=== PATIENT | female | born 1990 | race Caucasian/White ===

== ENCOUNTER 2018-01-09 23:03 | Emergency (ER) | payer BC, OTHER ==
--- NOTE | 2018-01-09 23:25 | ER Document Report ---
ED Medical Screen (RME) - General TRAVEL OUTSIDE OF THE [place] IN LAST 30 DAYS: No <BRANDT GARCIA - Last Filed: 01/09/18 23:23> <RAMONA HENDERSON - Last Filed: 01/10/18 01:38> <YARA GUARDADO - Last Filed: 01/10/18 09:59> - General Chief Complaint: Suicidal Ideation Stated Complaint: SUICIDIAL THOUGHTS Time Seen by Provider: 01/09/18 23:23 Notes: 27-year-old female with history of anxiety, depression, panic attacks that comes to the emergency department for chief complaint of feeling overwhelmed, voicing desire to kill herself, and continuous crying. Patient refuses to answer any questions, just continues to cry. states she takes Klonopin for anxiety attacks but was refusing to take any medications tonight. Has been compliant with regular medications reportedly. History of self-harm, no history of suicide attempt, no homicidal ideations. (BRANDT GARCIA) - Related Data Allergies/Adverse Reactions: No Known Drug Allergies Allergy (Verified 01/09/18 23:04) Physical Exam - Psychological Associated symptoms: Tearful - Continuous crying, will not answer questions, will make eye contact however <BRANDT GARCIA - Last Filed: 01/09/18 23:23> - Vital signs Vitals: Temp Pulse Resp BP Pulse Ox 98.5 F 89 20 148/96 H 98 01/09/18 23:07 01/09/18 23:07 01/09/18 23:07 01/09/18 23:07 01/09/18 23:07 Course - Laboratory Result Diagrams: 01/09/18 23:50 01/09/18 23:50 <RAMONA HENDERSON - Last Filed: 01/10/18 01:38> - Laboratory Result Diagrams: 01/09/18 23:50 01/09/18 23:50 <YARA GUARDADO - Last Filed: 01/10/18 09:59> - Re-evaluation Re-evalutation: 01/10/18 01:38 Patient medically cleared labs reviewed awaiting psychiatry consult in the morning (RAMONA HENDERSON) - Vital Signs Vital signs: Temp Pulse Resp BP Pulse Ox 98.5 F 89 20 148/96 H 98 01/09/18 23:07 01/09/18 23:07 10/04/18 23:07 01/09/18 23:07 01/09/18 23:07 - Laboratory Laboratory results interpreted by me: 01/09/18 23:50 Sodium 136.7 L Carbon Dioxide 20 L BUN 6 L Salicylates < 1.0 L Acetaminophen < 10 L Doctor's Discharge <BRANDT GARCIA - Last Filed: 01/09/18 23:23> <SANTIAGORAMONA H - Last Filed: 01/10/18 01:38> <YARA GUARDADO E - Last Filed: 01/10/18 09:59> - Discharge Clinical Impression: Anxiety Depression Qualifiers: Depression Type: unspecified Qualified Code(s): F32.9 - Major depressive disorder, single episode, unspecified Condition: Stable Disposition: HOME, SELF-CARE Additional Instructions: You have been evaluated by both medical and behavioral health teams and if deemed appropriate for discharge. Is recommended he follow-up with your outpatient mental health provider, [facility] services, in 3- 5 days for your continued outpatient mental health services. It may be beneficial to speak to your medication management provider about the possibility of a mood stabilizer versus an antidepressant such as Zyprexa. DEPRESSION: Your evaluation reveals that you have mental depression. While symptoms may be vague, they often include disturbance of sleep, fatigue, loss of appetite , and general loss of interest in life. While depression may be a side effect of drugs, or a reaction to a major change in your life, many cases have no known cause. If depression is acute, and related to a major loss in your life, you can expect it to clear completely with time. If you have been depressed a long time , are prone to repeated bouts of depression or low mood, or have been thinking of suicide, get help. Depression can be treated with anti-depressant medication and counselling. Long-term depression will often take a few weeks to clear, even with appropriate medication. Follow-up care is important. SUICIDAL IDEATION: Suicidal ideation is a common medical term for thoughts about suicide, which may be as detailed as a formulated plan, without the suicidal act itself. Although most people who undergo suicidal ideation do not commit suicide, some go on to make suicide attempts. The range of suicidal ideation varies greatly from fleeting to detailed planning, role playing, and unsuccessful attempts. While thoughts about suicide are common, most people do not carry out serious actions to commit suicide. Based upon your evaluation and discussion with you, we do not believe you are currently at risk to act upon your thoughts of suicide. You have agreed to return to the Emergency Department, at any time , if you feel inclined to act upon your suicidal thoughts. FOLLOW-UP CARE: If you experience worsening or a significant change in your symptoms, notify the physician immediately or return to the Emergency Department at any time for re-evaluation. Referrals: [facility] [Outside] - Follow up in 3-5 days [facility] Crisis [facility] [Outside] - Follow up as needed KATHERIN ESPINAL PA-C [Primary Care Provider] - Follow up as needed
[2018-01-10 00:08] LABS: ABSOLUTE BASOPHILS # (AUTO) 0.1 10^3/uL (0.0-0.2); ABSOLUTE EOSINOPHILS # (AUTO) 0.1 10^3/uL (0.0-0.6); ABSOLUTE LYMPHOCYTES (AUTO) 3.5 10^3/uL (0.5-4.7); ABSOLUTE MONOCYTES (AUTO) 0.6 10^3/uL (0.1-1.4); ABSOLUTE NEUT (AUTO) 4.2 10^3/uL (1.7-8.2); BASOPHILS % (AUTO) 0.7 % (0-2); HEMATOCRIT 40.5 % (36.0-47.0); HEMOGLOBIN 13.9 g/dL (12.0-15.5); LYMPHOCYTES % (AUTO) 41.4 % (13-45); MEAN CORPUSCULAR HEMOGLOBIN 29.9 pg (27.0-33.4); MEAN CORPUSCULAR HGB CONC 34.2 g/dL (32.0-36.0); MEAN CORPUSCULAR VOLUME 87 fl (80-97); MONOCYTES % (AUTO) 7.3 % (3-13); PLATELET COUNT 405 10^3/uL (150-450); RED BLOOD COUNT 4.64 10^6/uL (3.72-5.28); RED CELL DISTRIBUTION WIDTH 12.8 % (11.5-14.0); SEGMENTED NEUTROPHILS % (AUTO) 49.6 % (42-78); TOTAL CELLS COUNTED % (AUTO) 100 %; WHITE BLOOD COUNT 8.5 10^3/uL (4.0-10.5)
[2018-01-10 00:13] LABS: APPEARANCE,URINE CLEAR; BILIRUBIN,URINE NEGATIVE (NEGATIVE); COLOR,URINE YELLOW; GLUCOSE, URINE NEGATIVE (NEGATIVE); KETONES,URINE NEGATIVE (NEGATIVE); LEUKOCYTE ESTERASE,URINE NEGATIVE (NEGATIVE); NITRITE,URINE NEGATIVE (NEGATIVE); PROTEIN,URINE NEGATIVE (NEGATIVE); URINE SPECIFIC GRAVITY 1.013; UROBILINOGEN,URINE NEGATIVE mg/dL (<2.0)
[2018-01-10 00:26] LABS: ALANINE AMINOTRANSFERASE 15 U/L (9-52); ALBUMIN 4.2 g/dL (3.5-5.0); ALKALINE PHOSPHATASE 54 U/L (38-126); ANION GAP 11 (5-19); ASPARTATE AMINO TRANSFERASE 18 U/L (14-36); BILIRUBIN,DIRECT 0.4 mg/dL (0.0-0.4); BILIRUBIN,TOTAL 0.5 mg/dL (0.2-1.3); BLOOD UREA NITROGEN 6 mg/dL (7-20); CALCIUM 9.5 mg/dL (8.4-10.2); CARBON DIOXIDE 20 mmol/L (22-30); CHLORIDE 106 mmol/L (98-107); GLUCOSE 104 mg/dL (75-110); POTASSIUM 3.9 mmol/L (3.6-5.0); SODIUM 136.7 mmol/L (137-145); TOTAL PROTEIN 6.9 g/dL (6.3-8.2)
[2018-01-10 00:28] LABS: ACETAMINOPHEN < 10 ug/mL (10-30); ALCOHOL < 10 mg/dL (NONE DETECTED); SALICYLATE < 1.0 mg/dL (2.0-20.0)
[2018-01-10] MEDS ORDERED: DIAZEPAM 5 MG TABLET PO ONE (00:40)
--- NOTE | 2018-01-10 00:42 | ER Document Report ---
Addendum entered and electronically signed by EMELIA OVALLES LCSWA 01/10/18 08: 43: Discharge - Discharge Clinical Impression: Anxiety Depression Qualifiers: Depression Type: unspecified Qualified Code(s): F32.9 - Major depressive disorder, single episode, unspecified Condition: Stable Disposition: HOME, SELF-CARE Additional Instructions: You have been evaluated by both medical and behavioral health teams and if deemed appropriate for discharge. Is recommended he follow-up with your outpatient mental health provider, [facility], in 3- 5 days for your continued outpatient mental health services. It may be beneficial to speak to your medication management provider about the possibility of a mood stabilizer versus an antidepressant such as Zyprexa. DEPRESSION: Your evaluation reveals that you have mental depression. While symptoms may be vague, they often include disturbance of sleep, fatigue, loss of appetite , and general loss of interest in life. While depression may be a side effect of drugs, or a reaction to a major change in your life, many cases have no known cause. If depression is acute, and related to a major loss in your life, you can expect it to clear completely with time. If you have been depressed a long time , are prone to repeated bouts of depression or low mood, or have been thinking of suicide, get help. Depression can be treated with anti-depressant medication and counselling. Long-term depression will often take a few weeks to clear, even with appropriate medication. Follow-up care is important. SUICIDAL IDEATION: Suicidal ideation is a common medical term for thoughts about suicide, which may be as detailed as a formulated plan, without the suicidal act itself. Although most people who undergo suicidal ideation do not commit suicide, some go on to make suicide attempts. The range of suicidal ideation varies greatly from fleeting to detailed planning, role playing, and unsuccessful attempts. While thoughts about suicide are common, most people do not carry out serious actions to commit suicide. Based upon your evaluation and discussion with you, we do not believe you are currently at risk to act upon your thoughts of suicide. You have agreed to return to the Emergency Department, at any time , if you feel inclined to act upon your suicidal thoughts. FOLLOW-UP CARE: If you experience worsening or a significant change in your symptoms, notify the physician immediately or return to the Emergency Department at any time for re-evaluation. Referrals: TEDDY,KATHERIN, PA-C [Primary Care Provider] - Follow up as needed [facility] [Outside] - Follow up in 3-5 days [facility] [Outside] - Follow up as needed Original Note: ED Psych Disorder / Suicide - General TRAVEL OUTSIDE OF THE [place] IN LAST 30 DAYS: No <GRACIA DESIR - Last Filed: 01/10/18 01:11> <EMELIA OVALLES - Last Filed: 01/10/18 08:41> <YARA GUARDADO - Last Filed: 01/10/18 09:59> <RAMONA HENDERSON John - Last Filed: 01/10/18 22:14> - General Chief Complaint: Suicidal Ideation Stated Complaint: SUICIDIAL THOUGHTS Time Seen by Provider: 01/09/18 23:23 Notes: Patient is a 27-year-old female with depression and anxiety presents to the emergency department complaining of suicidal ideation. Patient states that she has been depressed and suicidal over the last 3 months further stating that she has had increased stress with work and family. She states she does not currently have a sucidal plan but admits to self harm via cutting approximately 2 months ago. Patient states she is seeking help via a psychiatrist and counselor and is trying different medications to help with her depression and anxiety. Patient denies any fevers or illnesses. Patient reports taking Klonopin as needed, Wellbutrin extended release, oral control, Lamictal 50 mg at night, 2.5 mg of Abilify and Trazodone. (GRACIA DESIR) - Related Data Allergies/Adverse Reactions: No Known Drug Allergies Allergy (Verified 01/09/18 23:04) Past Medical History - General Information source: Patient - Social History Smoking Status: Never Smoker Cigarette use (# per day): No Chew tobacco use (# tins/day): No Family History: Other - Depression and anxiety Psychiatric Medical History: Reports: Hx Anxiety, Hx Depression <GRACIA DESIR - Last Filed: 01/10/18 01:11> Review of Systems - Review of Systems Constitutional: No symptoms reported EENT: No symptoms reported Cardiovascular: No symptoms reported Respiratory: No symptoms reported Gastrointestinal: No symptoms reported Genitourinary: No symptoms reported Female Genitourinary: No symptoms reported Musculoskeletal: No symptoms reported Skin: No symptoms reported Hematologic/Lymphatic: No symptoms reported Neurological/Psychological: See HPI, Depression, Anxiety -: Yes All other systems reviewed and negative <GRACIA DESIR - Last Filed: 01/10/18 01:11> Physical Exam <GRACIA DESIR - Last Filed: 01/10/18 01:11> <CHARLETTEEMELIA - Last Filed: 01/10/18 08:41> <YARA GUARDADO E - Last Filed: 01/10/18 09:59> <SANTIAGORAMONA Lopez - Last Filed: 01/10/18 22:14> - Vital signs Vitals: Temp Pulse Resp BP Pulse Ox 98.5 F 89 20 148/96 H 98 01/09/18 23:07 01/09/18 23:07 01/09/18 23:07 01/09/18 23:07 01/09/18 23:07 - Notes Notes: GENERAL: Alert, interacts well, appears anxious, tearful. No acute distress. HEAD: Normocephalic, atraumatic. EYES: Pupils equal, round, and reactive to light. Extraocular movements intact. ENT: Oral mucosa moist, tongue midline. NECK: Full range of motion. Supple. Trachea midline. LUNGS: Clear to auscultation bilaterally, no wheezes, rales, or rhonchi. No respiratory distress. HEART: Regular rate and rhythm. No murmurs, gallops, or rubs. ABDOMEN: Soft, non-tender. Non-distended. Bowel sounds present in all 4 quadrants. EXTREMITIES: Moves all 4 extremities spontaneously. NEUROLOGICAL: Alert and oriented x3. Normal speech. PSYCH: Anxious, tearful. SKIN: Warm, dry, normal turgor. No rashes or lesions noted. (GRACIA DESIR) Course - Laboratory Result Diagrams: 01/09/18 23:50 01/09/18 23:50 - EKG Interpretation by Ok EKG shows normal: Sinus rhythm Rate: Normal Rhythm: NSR <GRACIA DESIR - Last Filed: 01/10/18 01:11> <EMELIA OVALLES - Last Filed: 01/10/18 08:41> - Laboratory Result Diagrams: 01/09/18 23:50 01/09/18 23:50 <YARA GUARDADO - Last Filed: 01/10/18 09:59> - Laboratory Result Diagrams: 01/09/18 23:50 01/09/18 23:50 <RAMONA HENDERSON - Last Filed: 01/10/18 22:14> - Re-evaluation Re-evalutation: 01/10/18 22:14 Final dispo from psych was performed after end of my shift. (RAMONA HENDERSON) - Vital Signs Vital signs: Temp Pulse Resp BP Pulse Ox 98.0 F 78 18 128/74 H 97 01/10/18 10:05 01/10/18 10:05 01/10/18 10:05 01/10/18 10:05 01/10/18 10:05 - Laboratory Laboratory results interpreted by me: 01/09/18 23:50 Sodium 136.7 L Carbon Dioxide 20 L BUN 6 L Salicylates < 1.0 L Acetaminophen < 10 L Discharge <GRACIA DESIR - Last Filed: 01/10/18 01:11> <EMELIA OVALLES - Last Filed: 01/10/18 08:41> <YARA GUARDADO - Last Filed: 01/10/18 09:59> <RAMONA HENDERSON - Last Filed: 01/10/18 22:14> - Discharge Clinical Impression: Anxiety Depression Qualifiers: Depression Type: unspecified Qualified Code(s): F32.9 - Major depressive disorder, single episode, unspecified Condition: Stable Disposition: HOME, SELF-CARE Additional Instructions: You have been evaluated by both medical and behavioral health teams and if deemed appropriate for discharge. Is recommended he follow-up with your outpatient mental health provider, [facility], in 3- 5 days for your continued outpatient mental health services. It may be beneficial to speak to your medication management provider about the possibility of a mood stabilizer versus an antidepressant such as Zyprexa. DEPRESSION: Your evaluation reveals that you have mental depression. While symptoms may be vague, they often include disturbance of sleep, fatigue, loss of appetite , and general loss of interest in life. While depression may be a side effect of drugs, or a reaction to a major change in your life, many cases have no known cause. If depression is acute, and related to a major loss in your life, you can expect it to clear completely with time. If you have been depressed a long time , are prone to repeated bouts of depression or low mood, or have been thinking of suicide, get help. Depression can be treated with anti-depressant medication and counselling. Long-term depression will often take a few weeks to clear, even with appropriate medication. Follow-up care is important. SUICIDAL IDEATION: Suicidal ideation is a common medical term for thoughts about suicide, which may be as detailed as a formulated plan, without the suicidal act itself. Although most people who undergo suicidal ideation do not commit suicide, some go on to make suicide attempts. The range of suicidal ideation varies greatly from fleeting to detailed planning, role playing, and unsuccessful attempts. While thoughts about suicide are common, most people do not carry out serious actions to commit suicide. Based upon your evaluation and discussion with you, we do not believe you are currently at risk to act upon your thoughts of suicide. You have agreed to return to the Emergency Department, at any time , if you feel inclined to act upon your suicidal thoughts. FOLLOW-UP CARE: If you experience worsening or a significant change in your symptoms, notify the physician immediately or return to the Emergency Department at any time for re-evaluation. Referrals: [facility] [Outside] - Follow up in 3-5 days [facility] Crisis Team [Outside] - Follow up as needed KATHERIN ESPINAL PA-C [Primary Care Provider] - Follow up as needed Scribe Attestation: 01/10/18 22:14 I personally performed the services described in the documentation, reviewed and edited the documentation which was dictated to the scribe in my presence, and it accurately records my words and actions. (RAMONA HENDERSON) Scribe Documentation - Scribe Written by Vale:: Vale Gonzalez, 01/10/2018 00:48 acting as scribe for :: Santiago <GRACIA DESIR - Last Filed: 01/10/18 01:11>
[2018-01-10 00:56] LABS: URINE BARBITURATES SCREEN NEGATIVE; URINE BENZODIAZEPINES SCREEN NEGATIVE; URINE COCAINE SCREEN NEGATIVE; URINE MARIJUANA (THC) SCREEN NEGATIVE; URINE METHADONE SCREEN NEGATIVE; URINE PHENCYCLIDINE SCREEN NEGATIVE
[2018-01-10 01:16] LABS: URINE AMPHETAMINES SCREEN NEGATIVE
[2018-01-10] MEDS ORDERED: TRAZODONE HCL 50 MG TABLET PO PRN (02:07)
[2018-01-10] MEDS ORDERED: ACETAMINOPHEN 325 MG TABLET PO ONE (04:58)
[2018-01-10] MEDS ORDERED: PROCHLORPERAZINE EDISYLATE INJ 10 MG/2 ML VIAL IM ONE (05:08)
--- NOTE | 2018-01-10 08:41 | PSYCHOLOGICAL NOTE ---
Psych Note - Psych Note Psych Note: Reason for Consult: suicidal ideation Patient's , Mekhi, is at bedside per patient's request Patient is a 27-year-old female with depression and anxiety presents to the emergency department complaining of suicidal ideation. Patient reports that she came to [facility] ED because she was having suicidal thoughts last night. She denies having a plan and reports that she has happened before approximately 3-4 weeks ago. Patient states that she is just restarted Abilify and only has had one dose Saturday evening. Patient has been taking Wellbutrin since October. When discussing her medications she discloses that in the past she has used these medications with success however she does feel that she has not been getting relief this current time. Patient is seen by both a therapist and a medication management provider at [facility] and would like to continue working directly with them for her medications. She discloses that she knows that she needs to give the medication time. Patient reports that she is always been diagnosed with depression anxiety however lately they have been discussing the possibility that she has bipolar. When asked if she has had any episodes of fidelina she states that she may have had a couple of hypo-manic episodes however they were very infrequent. Patient denies current suicidal. Patient is alert and orientated to person, place, time and circumstance. Mood is euthymic with congruent affect. Patient denies current suicidal and homicidal ideation reports chronic passive suicidal ideation that comes and goes. Delusions are absent and behaviors congruent with an intact reality based presentation i.e. organized and linear thought process. Eye contact was well-maintained. Conversational speech was within normal rate, tone and prosody. Intellectual abilities appear to be within the average range. Attention and concentration are good. Insight, judgment, impulse control are good as evidenced by coming to [facility] for additional assistance. No medication recommendations at this time 311 (F 32.9) unspecified depressive disorder per history provided by patient 300.00 (F 41.9) unspecified anxiety disorder per history provided by patient R/O 296.80 (F31.9) unspecified bipolar and related disorder Impression\plan: Patient is cleared from acute psychiatric services. Patient does not meet IVC criteria per [place] GS 122C. Patient reports chronic passive suicidal ideation that comes and goes. Patient denies current suicidal ideation. Patient states she would like to get medication adjustments by her outpatient mental health provider. She reports she knows that she needs to give the medications at chance to work and states that she has just restarted these medications. Patient's agrees to be part of patient's discharge plan to ensure the patient does not have access to weapons or medications and follows through with mental health recommendations. Patient and have been provided mobile crisis contact information. Dr. Espinoza was consulted and the care and management this patient; attending physician is in agreement with recommendations and disposition.
--- NOTE | 2018-01-10 09:21 | ER Document Report ---
Doctor's Note Notes: 01/10/18 09:18 As the rounding physician this AM, I assessed the patient's labs, vitals, and records. No concerning findings this morning. Patient denies any acute complaints. Patient is cleared for disposition by psychiatry. Psych Note: Impression\plan: Patient is cleared from acute psychiatric services. Patient does not meet IVC criteria per [place] GS 122C. Patient reports chronic passive suicidal ideation that comes and goes. Patient denies current suicidal ideation. Patient states she would like to get medication adjustments by her outpatient mental health provider. She reports she knows that she needs to give the medications at chance to work and states that she has just restarted these medications. Patient's agrees to be part of patient's discharge plan to ensure the patient does not have access to weapons or medications and follows through with mental health recommendations. Patient and have been provided mobile crisis contact information. Dr. Espinoza was consulted and the care and management this patient; attending physician is in agreement with recommendations and disposition. 01/10/18 09:55 PHYSICAL EXAMINATION: GENERAL: Well-appearing, well-nourished and in no acute distress. HEAD: Atraumatic, normocephalic. EYES: Pupils equal round extraocular movements intact, conjunctiva are normal. ENT: Nares patent NECK: Normal range of motion LUNGS: No respiratory distress Musculoskeletal: Normal range of motion NEUROLOGICAL: Normal speech, normal gait. PSYCH: Normal mood, normal affect. SKIN: Warm, Dry, normal turgor, no rashes or lesions noted. 01/10/18 09:57
[2018-01-10] MEDS ORDERED: LAMOTRIGINE 100 MG TABLET PO SCH (10:00)
[2018-01-10] MEDS ORDERED: ARIPIPRAZOLE 5 MG TABLET PO SCH (10:00)
[2018-01-10] MEDS ORDERED: NORETHINDRONE E ESTRADIOL IRON PO SCH (10:00)
[2018-01-10] MEDS ORDERED: (PENDING PHARMACY ID) (Bupropion Hcl [Wellbutrin Xl] 300 MG) PO SCH (10:00)
[2018-01-10 10:07] VITALS: BP 128/74
--- NOTE | 2018-01-10 10:11 | EKG REPORT ---
SEVERITY:- NORMAL ECG - SINUS RHYTHM : Confirmed by: Beny Goldman 10-Jan-2018 10:10:48
[2018-01-10] MEDS ORDERED: BUPROPION HCL 100 MG TABLET PO SCH (14:00)
== END 2018-01-10 10:29 | disposition home or self-care (01) ==
LOC: ER 23:03
DX: R45.851 Suicidal ideations (principal); F32.9 Major depressive disorder, single episode, unspecified; F41.9 Anxiety disorder, unspecified
CPT/HCPCS: 93005; 99285; 96372; 36415; 80307 ×4; 84703; 85025; 80053; 81001; 93010; J0780; J3490